=== PATIENT | female | born 2000 | race Hispanic/Latino ===

== ENCOUNTER 2020-03-07 09:26 | Emergency (ER) | payer SELFPAY ==
[~2020-03-07] VITALS: Ht 152.4 cm; Wt 56.7 kg
[2020-03-07] MEDS ORDERED: KETOROLAC TROMETHAMINE 30 MG/ML VIAL IV STA (10:20)
[2020-03-07] MEDS ORDERED: KETOROLAC TROMETHAMINE 30 MG/ML VIAL ONE (10:42)
--- NOTE | 2020-03-07 11:16 | Diagnostic Imaging Report ---
CT of the abdomen and pelvis, without contrast. History: Left flank pain. Comparison: None available. Technique: Multidetector CT scanning of the abdomen and pelvis was performed from the level of the lung bases to the inferior pubic rami without the use of contrast material. Coronal and sagittal multiplanar reformations were obtained. RADIATION DOSE: Total DLP: 378.73 mGy*cm Dose modulation, iterative reconstruction, and/or weight based adjustment of the mA/kV was utilized to reduce the radiation dose to as low as reasonably achievable. FINDINGS: The visualized intrathoracic contents are unremarkable. The liver is normal in size and attenuation on this noncontrast enhanced examination. The gallbladder is unremarkable. There is no biliary ductal dilatation. The stomach, spleen, pancreas, and bilateral adrenal glands are unremarkable. The kidneys are normal in size and location. Approximately 8 nonobstructing calculi are identified within the right kidney, the largest measures 4 mm and is located within the superior pole. Approximately 6 nonobstructing calculi are identified within the left kidney, the largest measures 4 mm and is located within the inferior pole. No ureteral stone or dilatation is appreciated. The urinary bladder demonstrates no significant abnormalities. An intrauterine device is identified in place. The uterus and adnexa are otherwise unremarkable. The abdominal aorta is normal course and caliber. The IVC is unremarkable. Please note evaluation the bowel is limited without the use of enteric contrast material. The visualized loops of small and large bowel demonstrate no evidence of obstruction or inflammation. The appendix is visualized and appears unremarkable. There is no ascites or intraperitoneal free air. No abnormally enlarged lymph nodes are identified within the abdomen or pelvis. The osseous structures demonstrate no evidence for acute fracture or destructive process. The extraperitoneal soft tissues are unremarkable. IMPRESSION: Bilateral subcentimeter, nonobstructive nephrolithiasis as detailed above. No evidence for hydronephrosis or obstructive uropathy. Signed by: Dr. Soham Ambrosio MD on 03/07/2020 11:12 AM
--- NOTE | 2020-03-07 11:33 | Emergency Department Note ---
History of Present Illnes History of Present Illness Chief Complaint: Abdominal Complaints History of Present Illness This is a 19 year old female Chief Complaint Comment LEFT LOWER ABD PAIN RADIATING TO ACROSS BACK. DENIES DISCHARGE . Historian: Patient Onset (how long ago): day(s) (2) Location: [facility] PAIN Quality: SHARP Radiation: Denies non-radiation, Denies back, Denies neck, Denies extremity, Denies abdomen, Denies periumbilical, Denies flank, Denies proximal, Denies distal, Denies other Severity: moderate Onset quality: gradual Duration (how long): day(s) (2) Timing of current episode: constant Progression: waxing and waning Chronicity: new Context: Denies recent illness, Denies recent surgery, Denies recent immobilization, Denies recent travel, Denies trauma/injury, Denies new medications, Denies hx of DVT/PE, Denies non-compliance w/ medications, Denies other Relieving factors: none Exacerbating factors: none Associated symptoms: Reports denies other symptoms Treatments prior to arrival: none Past Medical/Family History Physician Review I have reviewed the patient's past medical and family history. Any updates have been documented here. Past Medical History Recent Fever: No Clinical Suspicion of Infectio: No New/Unexplained Change in Ment: No Past Medical History: None Other Surgery: d&c Social History Smoking Cessation: Never Smoker Counseling Performed: No Alcohol Use: None Any Illegal Drug Use: No Physically hurt or threatened: No Other Any Pre-Existing Lines (PICC,: No Review of Systems Review of Systems Constitutional: Reports no symptoms EENTM: Reports no symptoms Cardiovascular: Reports no symptoms Respiratory: Reports no symptoms Gastrointestinal: Reports abdominal pain Genitourinary: Reports no symptoms Musculoskeletal: Reports no symptoms Integumentary: Reports no symptoms Neurological: Reports no symptoms Psychological: Reports no symptoms Endocrine: Reports no symptoms Hematological/Lymphatic: Reports no symptoms Physical Exam Related Data Allergies: Coded Allergies: No Known Allergies (Unverified , 03/07/20) Triage Vital Signs Vital Signs Date Time Temp Pulse Resp B/P (MAP) Pulse Ox O2 Delivery O2 Flow Rate FiO2 03/07/20 10:10 98.5 70 18 126/82 100 Room Air Vital signs reviewed: Yes Physical Exam CONSTITUTIONAL Constitutional: Present well-developed, Present well-nourished HENT HENT: Present normocephalic, Present atraumatic, Present oropharynx clear/moist, Present nose normal HENT L/R: Present left ext ear normal, Present right ext ear normal EYES Eyes: Reports PERRL, Reports conjunctivae normal NECK Neck: Present ROM normal PULMONARY Pulmonary: Present effort normal, Present breath sounds normal CARDIOVASCULAR Cardiovascular: Present regular rhythm, Present heart sounds normal, Present capillary refill normal, Present normal rate GASTROINTESTINAL Abdominal: Present soft, Present nontender, Present bowel sounds normal, Present tender (LLQ) GENITOURINARY Genitourinary: Present exam deferred SKIN Skin: Present warm, Present dry MUSCULOSKELETAL Musculoskeletal: Present ROM normal NEUROLOGICAL Neurological: Present alert, Present oriented x 3, Present no gross motor or sensory deficits PSYCHOLOGICAL Psychological: Present mood/affect normal, Present judgement normal Results Laboratory Lab results reviewed: Yes Imaging Imaging results reviewed: Yes Assessment & Plan Medical Decision Making MDM OVARIAN CYST KIDNEY STONE Reassessment Reassessment BETTER Assessment & Plan Final Impression: (1) Abdominal pain, left lower quadrant (2) Renal colic on left side Depart Disposition: HOME, SELF-CARE Last Vital Signs Date Time Temp Pulse Resp B/P (MAP) Pulse Ox O2 Delivery O2 Flow Rate FiO2 03/07/20 10:10 98.5 70 18 126/82 100 Room Air Medications in the ED Ketorolac Tromethamine 15 mg ONCE STAT IV Last administered on 03/07/20at 10:48; Admin Dose 15 MG; Start 03/07/20 at 10:20; Stop 03/07/20 at 10:37; Status DC Ketorolac Tromethamine 30 mg STK-MED ONCE .ROUTE ; Start 03/07/20 at 10:42; Stop 03/07/20 at 10:37; Status DC NEHEMIAS FLORES MD Mar 07, 2020 11:33
[2020-03-07] MEDS ORDERED: KETOROLAC TROME10 MG PO (11:36)
[2020-03-07 12:00] VITALS: BP 111/71
== END 2020-03-07 12:00 | disposition home or self-care (01) ==
LOC: FSED 10:28
DX: N23 Unspecified renal colic (principal)
CPT/HCPCS: 74176; 80048; 81003; 81025; 85025; 96374; 99284; J1885